=== PATIENT | female | born 1965 | race Caucasian/White ===

== ENCOUNTER 2023-09-04 06:29 | Day surgery (SDC) | payer BC, SELFPAY ==
[2023-08-29 09:42] LABS: Hematocrit 38.3 % (37.0-47.0); Hemoglobin 12.8 g/dL (12.0-16.0); Mean Corp Hgb Conc. 33.4 g/dL (33.0-37.0); Mean Corpuscular Hgb 30.6 pg (27.0-31.0); Mean Corpuscular Volume 91.6 fL (81.0-99.0); Platelet Count 328 10^3/uL (130-400); Red Blood Cell Count 4.18 10^6/uL (4.20-5.40); Red Cell Dist. Width 13.9 % (11.5-14.5); White Blood Cell Count 9.2 10^3/uL (4.8-10.8)
[2023-08-29 10:07] VITALS: BMI 23.3
[2023-08-29 10:28] LABS: Blood Urea Nitrogen 23 mg/dl (7-17); Calcium 9.9 mg/dl (8.4-10.2); Carbon Dioxide 27 mmol/L (22-30); Chloride 100 mmol/L (98-107); Estimated Creatinine Clearance 54 ml/min; Glucose 102 mg/dl (70-99); Potassium 5.4 mmol/L (3.5-5.1); Sodium 136 mmol/L (135-145); eGFR > 60.00
[2023-09-04] VITALS (11 sets, daily range): BP systolic 111–137; BP diastolic 69–85; BMI 23.3
--- NOTE | 2023-09-04 07:20 | HP.FOC2 ---
Focused History & Physical
Chief Complaint
HPI:
Chief Complaint: Bilateral inguinal hernias
HPI / Indication for Planned Procedure: Patient is a 58-year-old female known to myself secondary to a history of bilateral inguinal hernias. She had been following expectantly for the past few years, since 2019, but they have progressed a bit in
size with associated symptoms now prompting surgical correction. Right side more bothersome than left.
Relevant Past Medical History: Other (Chronic low back pain)
Relevant Social History: Negative
Relevant Family History: Negative
Relevant Past Surgical History: Positive for (Removal right/left breast cyst, extraction, bilateral breast implants, excision of basal cell carcinoma)
Review of Systems
Review of Pertinent Systems: All Systems Negative
Medication
See Medication form for detailed medications: Yes
Medication List (including Herbals & OTC):
Fish Oil 1,400 mg PO DAILY 08/29/23
Holy Basil 3 tab PO HS 08/29/23
Mushroom Powder 2 cap PO DAILY 08/29/23
[place] Extract 650 mg PO DAILY 08/29/23
garlic 200 mg tablet 600 mg PO DAILY 08/29/23
turmeric root extract 500 mg capsule 1,500 mg PO DAILY 08/29/23
Medications Reviewed: Yes
Allergies and Reactions
Patient has Allergies: Yes
Noted Allergies and Reactions:
Allergy/AdvReac Type Severity Reaction Status Date / Time
No Known Allergies Allergy Verified 08/29/23 10:07
Pertinent Physical Exam
All Other Systems: Negative
Head/Neck: Normal
Lungs: Normal
Heart: Normal
Abdomen: Other (Bilateral inguinal hernias reducible, right side larger than left)
Extremities: Normal
Neurological: Normal
Diagnosis / Assessment
Patient is a 58-year-old female presenting for scheduled operative correction symptomatic bilateral inguinal hernias
Plan / Procedure
Robotic assisted laparoscopic repair bilateral inguinal hernias with mesh
Anesthesia/Sedation to be done by Anesthesia Provider: Yes
[2023-09-04] MEDS: NORMOSOL-R 1000 IV (08:40)
[2023-09-04] MEDS: TYLENOL 1000 MG PO (08:51)
--- NOTE | 2023-09-04 09:00 | W.SUR.PREOP ---
Pre-Operative Surgical Note
-
I have examined this patient prior to the performance of the scheduled procedure.
The patient's condition is unchanged from the time of the current History and
Physical and the patient is able to undergo the scheduled procedure.
--- NOTE | 2023-09-04 11:29 | W.IMMPOSTOP ---
Addendum entered and electronically signed by Vince Tucker MD 09/04/23 11:39:
#[id number]
Original Note:
Surgical Immed Post Op Note
-
Primary Surgeon: Garrett
Assisting Surgeon: Simin LINARES
Pre-op Diagnosis: Bilateral inguinal hernias
Post-op Diagnosis: Bilateral inguinal hernia; indirect. Left femoral hernia as well
Procedure Performed: Robotic assisted laparoscopic repair bilateral inguinal's/left femoral hernias with mesh. 3D max large mid weight x 2
Anesthesia Type: GETA +0.25% Marcaine
Specimen / Cultures: None
Estimated Blood Loss: 8 mL
Complications: None immediate
Operative Findings: Bilateral indirect inguinal hernias with lipomas of the inguinal canal reduced and excised. Left femoral hernia with herniated preperitoneal fat. 3D max large mid weight mesh repair x 2.
[2023-09-04] MEDS: ROXICODONE 5 MG PO (13:56)
== END 2023-09-04 14:02 | disposition home or self-care (01) ==
LOC: SDS 06:29
PROVIDERS: ATTENDING PHYSICIAN Surgery; FAMILY PHYSICIAN Family Medicine
DX: K40.20 Bilateral inguinal hernia, without obstruction or gangrene, not specified as recurrent (principal); K41.90 Unilateral femoral hernia, without obstruction or gangrene, not specified as recurrent
CPT/HCPCS: 49650; 49550; 36415; 80048; 85027; 93005; C1781

== ENCOUNTER → 2023-11-16 10:29 | Outpatient (REF) | payer BC, SELFPAY | LOC: HWWDC 10:29 | PROVIDERS: ATTENDING PHYSICIAN Physician Assistant Medical | DX: Z12.31 Encounter for screening mammogram for malignant neoplasm of breast (principal) | CPT/HCPCS: 77063; 77067 ==

== ENCOUNTER → 2024-06-06 08:04 | Outpatient (REF) | payer BC, SELFPAY | LOC: HWRAD 08:04 | PROVIDERS: ATTENDING PHYSICIAN Obstetrics & Gynecology Gynecology; FAMILY PHYSICIAN Physician Assistant Medical | DX: N95.0 Postmenopausal bleeding (principal) | CPT/HCPCS: 76830; 76856 ==

== ENCOUNTER 2025-02-05 07:08 | Emergency (ER) | payer BC, SELFPAY ==
[2025-02-05 07:12] VITALS: BP 168/104
--- NOTE | 2025-02-05 07:32 | ED.GENMED ---
History of Present Illness
<Adiel Harrell PA-C - Last Filed: 02/05/25 10:59>
General
Chief Complaint: Chest Pain
Source: patient
Time Seen by Provider: 02/05/25 07:21
History of Present Illness
History of Present Illness:
59-year-old female with no significant past medical history presenting to the emergency department for evaluation after she has been experiencing waxing waning upper chest/back pain described to be sharp, nonradiating, mostly constant but with
worsening severity especially with deep inspiration, today worse at 4 AM which is what prompted her to come to the ER. Patient notes that she was on her way of car runner Monday which she notes is a relatively normal activity for her and notes
there was no specific injury while on the [employer] runner. Patient states she does not feel short of breath, denies any cough, hemoptysis, fevers or recent illnesses, lower extremity pain or edema, abdominal pain, nausea or vomiting. Patient did not
take anything for her symptoms prior to arrival. Patient states the only travel she has done recently is down to [place] where they have a second house and where they were riding the [employer] car runner the [facility]. Social history was otherwise
noncontributory. Family history was noted for mother having a stroke and father having cardiac arrhythmia.
Past History
<Adiel Harrell PA-C - Last Filed: 02/05/25 10:59>
Past History
ED Past Medical History: None
ED Past Surgical History: Other (Hernia repair)
Social History
Tobacco: Non-smoker
Alcohol: Occasional
Drug: None
Personal:
Living: with family
Review of Systems
<Adiel Harrell PA-C - Last Filed: 02/05/25 10:59>
Review of Systems
All Other Systems: ROS reviewed and negative except as documented in HPI and ROS
Phy Exam
<Adiel Harrell PA-C - Last Filed: 02/05/25 10:59>
Physical Exam
Physical Exam:
GENERAL: Alert , in no apparent distress
HEAD: Normocephalic atraumatic
EYE: conjunctiva clear
NECK: Supple
ENT: o/p clr, mmm.
CARDIAC: Tachycardic rate, normal rhythm, rate between 104 and 118 bpm
LUNGS: Clear breath sounds bilaterally, no acute respiratory distress, no wheezes/rales/rhonchi
NEUROLOGICAL: Alert and oriented
SKIN: Warm and dry, skin intact.
MUSCULOSKELETAL: well perfused. Orthopedic shoe on the left foot from what patient states is a Herring fracture
PSYCH: Normal and appropriate interaction.
Scores
<Adiel Harrell PA-C - Last Filed: 02/05/25 10:59>
Heart Failure Risk
Heart Failure Risk Score: Not Applicable
Heart Score for Chest Pain Patients
STEMI patient?: Not applicable
Withdrawal Assessment of Alcohol
Withdrawal Assessment Completed?: Not applicable
Course
<Adiel Harrell PA-C - Last Filed: 02/05/25 10:59>
Orders/Labs/Results
Orders:
Orders
02/05/25 07:10
Electrocardiogram (*1) Urgent
Reason for Study: Chest Pain
02/05/25 07:11
EKG- Treatment ONCE
02/05/25 07:30
CT Chest PE Study Urgent
Comment:
Reason For Exam: pleurisy, tachy, chest pain
02/05/25 07:50
Complete Blood Count/With Diff Urgent
Comprehensive Metabolic Panel Urgent
NT-proBNP Urgent
Troponin I Urgent
02/05/25 09:58
Ketorolac [Toradol] 30 mg IV NOW STA
Abnormal Lab Results
02/05/25
07:50
WBC 11.2 H 10^3/uL
(4.8-10.8)
RBC 4.18 L 10^6/uL
(4.20-5.40)
Absolute Neuts (auto) 7.8 H 10^3/uL
(1.4-6.5)
Absolute Monos (auto) 1.7 H 10^3/uL
(0.1-0.6)
Lymphocytes % 12.3 L %
(20.5-51.1)
Monocytes % 15.2 H %
(1.7-9.3)
BUN 22 H mg/dl
(7-17)
Glucose 112 H mg/dl
(70-99)
02/05/25 07:50
02/05/25 07:50
Vital Signs
Initial and Last Documented VS:
Initial Vital Signs
Temp Pulse Resp BP Pulse Ox
97.9 F 115 16 168/104 100
02/05/25 07:12 02/05/25 07:12 02/05/25 07:12 02/05/25 07:12 02/05/25 07:12
Last Documented Vital Signs
Temp Pulse Resp BP Pulse Ox
97.9 F 76 20 117/69 99
02/05/25 07:12 02/05/25 10:00 02/05/25 10:00 02/05/25 10:00 02/05/25 10:00
<Tanner Blue MD - Last Filed: 02/05/25 10:04>
Orders/Labs/Results
Orders:
Orders
02/05/25 07:10
Electrocardiogram (*1) Urgent
Reason for Study: Chest Pain
02/05/25 07:11
EKG- Treatment ONCE
02/05/25 07:30
CT Chest PE Study Urgent
Comment:
Reason For Exam: pleurisy, tachy, chest pain
02/05/25 07:50
Complete Blood Count/With Diff Urgent
Comprehensive Metabolic Panel Urgent
NT-proBNP Urgent
Troponin I Urgent
02/05/25 09:58
Ketorolac [Toradol] 30 mg IV NOW STA
Abnormal Lab Results
02/05/25
07:50
WBC 11.2 H 10^3/uL
(4.8-10.8)
RBC 4.18 L 10^6/uL
(4.20-5.40)
Absolute Neuts (auto) 7.8 H 10^3/uL
(1.4-6.5)
Absolute Monos (auto) 1.7 H 10^3/uL
(0.1-0.6)
Lymphocytes % 12.3 L %
(20.5-51.1)
Monocytes % 15.2 H %
(1.7-9.3)
BUN 22 H mg/dl
(7-17)
Glucose 112 H mg/dl
(70-99)
02/05/25 07:50
02/05/25 07:50
Vital Signs
Initial and Last Documented VS:
Initial Vital Signs
Temp Pulse Resp BP Pulse Ox
97.9 F 115 16 168/104 100
02/05/25 07:12 02/05/25 07:12 02/05/25 07:12 02/05/25 07:12 02/05/25 07:12
Last Documented Vital Signs
Temp Pulse Resp BP Pulse Ox
97.9 F 76 20 117/69 99
02/05/25 07:12 02/05/25 10:00 02/05/25 10:00 02/05/25 10:00 02/05/25 10:00
<Adiel Harrell PA-C - Last Filed: 02/05/25 10:59>
MDM/Problems Addressed
Differential Diagnosis Includes:
Pulmonary embolism
Aortic dissection
AAA
Pleurisy
Pneumonia
Viral syndrome
Pneumothorax
Pericarditis/myocarditis
Less concern for GI symptoms
MDM/Problems Addressed:
59-year-old female presenting to the ER for evaluation of upper chest/back pain since Monday. Notes she was riding a wave runner the same day but states that that is a pretty typical summer activity for her so I do not suspect a traumatic cause
for her pain. Given the pleuritic nature of her pain, tachycardia and lack of reproducibility will obtain a CTA of the chest to rule out PE. This should also evaluate the aorta to ensure no complications. Patient declining anything for pain.
Disposition pending.
<Adiel Harrell PA-C - Last Filed: 02/05/25 10:59>
*Radiology
Radiology exam reviewed: radiology read reviewed
*Pulse Oximetry
SaO2: 100
Oxygen Mode of Delivery: Room air
Patient hypoxic: no
*EKG
Heart Rate: 109
Rate: tachycardiac
Rhythm: sinus
Ischemia: T-wave inversion (V5 and V6)
*Hull Inspector Interpretation
Rate: tachycardiac
Heart Rate: 114
Rhythm: sinus
*Critical Care Note
Total Time (30-74mins, 75-104mins- exclusive of procedures): Not Applicable
<Adiel Harrell PA-C - Last Filed: 02/05/25 10:59>
Patient Management
Social determinants of health affecting care: Living situation and Strong social support
Escalation/DeEscalation of care consider admission/obs:
CT findings noted for no PE or aortic complications. There are small bilateral pleural effusions with possible atelectasis versus pneumonia and pericardial thickening. Question pneumonia versus pericarditis. Will cover with a course of
doxycycline as well as colchicine. Patient to follow-up with primary care provider. Aware of return precautions.
ED Attending Note
<Adiel Harrell PA-C - Last Filed: 02/05/25 10:59>
-
Portions of this chart may have been created with voice recognition software.� Occasional wrong word or��sound alike� substitutions may have occurred due to the inherent limitations of voice recognition software.
<Tanner Blue MD - Last Filed: 02/05/25 10:04>
ED Attending Note
Patient seen and examined by attending physician: Yes
I performed the substantive portion of visit, reviewed & personally made and approve the management plan that is documented in note by myself or GATO.: Yes
ED Attending Note:
59-year-old female presents with 4 days of chest pain upper back pain somewhat pleuritic in nature. Patient had no symptoms while doing the wave runner which she does frequently. Worse with lying down. No past medical history.
On exam patient is nontoxic in no distress. She is warm and dry. Perfusing well. Lungs are clear and equal. No severe splinting. Heart regular rate and rhythm no murmur. Abdomen is nontender. Extremities are unremarkable. No cords. No calf
swelling or tenderness. She does have a cast shoe on her left foot from 1/5 metatarsal fracture.
EKG... Sinus tachycardia. Some LVH changes. Troponin normal. CT angio shows some mild pericardial thickening and small pleural effusions. No PE no dissection. Mild leukocytosis.
This would be consistent with a pericarditis/pleuritis. Possibly infectious. Will start colchicine, doxycycline symptomatic treatment. Medically stable for discharge to follow-up. Do not feel repeat cardiac testing is needed or warranted. She
has had the symptoms for 4 days essentially continuously.
Discharge Plan
Departure
Patient Disposition: Home (Routine Discharge)
Date of Disposition: 02/05/25
Time of Disposition: 10:01
Patient with high blood pressure during this ER visit?: Yes
Discharge Problem:
Chest pain
Instructions: Chest Pain PCP Follow Up
Prescriptions:
New
doxycycline hyclate 100 mg tablet
100 mg PO BID 10 Days Qty: 20 0RF
colchicine 0.6 mg tablet
0.6 mg PO DAILY Qty: 11 0RF
Rx Instructions:
Take one tab PO BID on day 1, take one tab PO remaining days
No Action
turmeric root extract 500 mg Capsule
1,500 mg PO DAILY
garlic 200 mg Tablet
600 mg PO DAILY
Fish Oil
1,400 mg PO DAILY
Holy Basil
3 tab PO HS
Mushroom Powder
2 cap PO DAILY
Patient Comments:
1000 MG
[place] Extract 650 mg capsule
650 mg PO DAILY
Tylenol
1,000 mg PO Q6H PRN (Reason: pain)
tramadol 50 mg tablet
50 mg PO Q6HPRN PRN (Reason: severe pain/breakthrough pain) Qty: 7 0RF
ibuprofen 200 mg tablet
400 - 600 mg PO Q6HPRN PRN (Reason: moderate pain) Qty: 1 0RF
polyethylene glycol 3350 [Miralax] 17 gram/dose powder
4 g PO DAILY PRN (Reason: Constipation) Qty: 119 0RF
Rx Instructions:
start a laxative such as MIRALAX on day 2 after surgery if no bowel movement yet as long as no nausea/vomiting and passing gas
Referrals:
Diamante Yu MD [Family Provider, Gynecology]
Interventions
Interventions:
*Risk Screen - Suicide Last Done: 02/05/25 07:40
*General Assessment Last Done: 02/05/25 07:40
*Neglect/Abuse Screening Last Done: 02/05/25 07:40
*ED- Fall Risk Assessment Last Done: 02/05/25 07:40
*ED COVID-19 Vaccine History Last Done: 02/05/25 07:40
*Nursing Disposition Last Done: 02/05/25 10:33
ED- Cardiac Assessment Last Done: 02/05/25 07:43
Discharge Date and Time
Discharge Date/Time: 02/05/25 10:33
Print Language: BAHRAINI
[2025-02-05 07:34] VITALS: BP 139/84
[2025-02-05 07:35] VITALS: BMI 21.5
[2025-02-05 08:00] VITALS: BP 136/84
[2025-02-05 08:07] LABS: Hematocrit 38.5 % (37.0-47.0); Hemoglobin 12.9 g/dL (12.0-16.0); Mean Corp Hgb Conc. 33.5 g/dL (33.0-37.0); Mean Corpuscular Volume 92.1 fL (81.0-99.0); Nucleated Red Blood Cells % 0 %; Platelet Count 374 10^3/uL (130-400); Red Cell Dist. Width 13.0 % (11.5-14.5)
[2025-02-05 08:32] LABS: Troponin I < 0.012 ng/ml
[2025-02-05 08:39] LABS: ALT (SGPT) 19 U/L (0-35); AST (SGOT) 20 U/L (14-36); Albumin 4.5 g/dl (3.5-5.0); Alkaline Phosphatase 120 U/L (38-126); Blood Urea Nitrogen 22 mg/dl (7-17); Calcium 9.7 mg/dl (8.4-10.2); Carbon Dioxide 24 mmol/L (22-30); Chloride 105 mmol/L (98-107); Estimated Creatinine Clearance 68 ml/min; Glucose 112 mg/dl (70-99); Potassium 4.1 mmol/L (3.5-5.1); Sodium 140 mmol/L (135-145); Total Protein 7.8 g/dl (6.3-8.2); eGFR > 60.00
[2025-02-05 09:00] VITALS: BP 124/75
[2025-02-05 10:00] VITALS: BP 117/69
[2025-02-05] MEDS: TORADOL 30 MG IV (10:12)
== END 2025-02-05 10:33 | disposition home or self-care (01) ==
LOC: EMR 07:08
PROVIDERS: Physician Assistant Medical; EMERGENCY PHYSICIAN Emergency Medicine; FAMILY PHYSICIAN Physician Assistant Medical
DX: R07.9 Chest pain, unspecified (principal); R00.0 Tachycardia, unspecified; R03.0 Elevated blood-pressure reading, without diagnosis of hypertension; J90 Pleural effusion, not elsewhere classified; D72.829 Elevated white blood cell count, unspecified
CPT/HCPCS: 99284; 96374; 71275; 80053; 83880; 84484; 85025; 93005; Q9967

== ENCOUNTER 2025-02-06 13:48 | Emergency (ER) | payer BC, SELFPAY ==
[2025-02-06] VITALS (8 sets, daily range): BP systolic 139–155; BP diastolic 90–101; BMI 21.3
--- NOTE | 2025-02-06 14:30 | ED.GENMED ---
History of Present Illness
<Adiel Harrell PA-C - Last Filed: 02/07/25 15:47>
General
Chief Complaint: Chest Pain
Source: patient and records
Time Seen by Provider: 02/06/25 13:49
History of Present Illness
History of Present Illness:
59-year-old female presenting back to the emergency department for reevaluation of her continued chest discomfort which started a few days ago after she had been jet skiing on a sprague, describing the pain to be across her chest and into her back,
worse with deep inspiration. Patient was contacted back by our emergency team noting the continued symptoms and was recommended she come back for further evaluation. Today patient denies any new symptoms. She did initiate the colchicine and
antibiotics last night but states this did not give her any relief. Denies any fevers, rigors, cough or any other current symptoms.
Past History
<Adiel Harrell PA-C - Last Filed: 02/07/25 15:47>
Past History
ED Past Medical History: None
ED Past Surgical History: Other (Hernia repair)
Social History
Tobacco: Non-smoker
Alcohol: Occasional
Drug: None
Personal:
Living: with family
Review of Systems
<Adiel Harrell PA-C - Last Filed: 02/07/25 15:47>
Review of Systems
All Other Systems: ROS reviewed and negative except as documented in HPI and ROS
Phy Exam
<Adiel Harrell PA-C - Last Filed: 02/07/25 15:47>
Physical Exam
Physical Exam:
GENERAL: Alert , in no apparent distress
HEAD: Normocephalic atraumatic
EYE: conjunctiva clear
NECK: Supple
ENT: o/p clr, mmm.
CARDIAC: Regular rate and rhythm
LUNGS: Clear breath sounds bilaterally, no acute respiratory distress, no wheezes/rales/rhonchi
NEUROLOGICAL: Alert and oriented
SKIN: Warm and dry, skin intact.
MUSCULOSKELETAL: well perfused.
PSYCH: Normal and appropriate interaction.
Scores
<Adiel Harrell PA-C - Last Filed: 02/07/25 15:47>
Heart Failure Risk
Heart Failure Risk Score: Not Applicable
Heart Score for Chest Pain Patients
STEMI patient?: No
History: Slightly or Non-Suspicious
ECG: Normal
Age: >45 - <65 years
Risk Factors: 1 or 2 Risk Factors
Troponin: </= Normal Limit
Heart Score for Chest Pain Patients: 2
Heart Score Risk: 2.5% MACE over next 6 weeks
Withdrawal Assessment of Alcohol
Withdrawal Assessment Completed?: Not applicable
<Helen Partida MD - Last Filed: 02/06/25 19:51>
Heart Score for Chest Pain Patients
Heart Score for Chest Pain Patients: 2
Heart Score Risk: 2.5% MACE over next 6 weeks
Course
<Adiel Harrell PA-C - Last Filed: 02/07/25 15:47>
Orders/Labs/Results
Orders:
Orders
02/06/25 13:49
Electrocardiogram (*1) Urgent
Reason for Study: Chest Pain
EKG- Treatment ONCE
02/06/25 14:12
Echo 2D MMode Color/Doppler Urgent
Reason for Study: chest pain, effusions
02/06/25 14:35
Complete Blood Count/With Diff Urgent
Comprehensive Metabolic Panel Urgent
D-Dimer Urgent
Troponin I Urgent
02/06/25 15:54
Ketorolac [Toradol] 15 mg .ROUTE .STK-MED ONE
02/06/25 15:58
Ketorolac [Toradol] 15 mg IV NOW STA
02/06/25 16:15
US Periph Venous LOWER Ext Ran Urgent
Comment:
Reason For Exam: SWELLING
Abnormal Lab Results
02/06/25
14:35
WBC 11.0 H 10^3/uL
(4.8-10.8)
RBC 3.92 L 10^6/uL
(4.20-5.40)
Hct 35.7 L %
(37.0-47.0)
Absolute Neuts (auto) 7.7 H 10^3/uL
(1.4-6.5)
Absolute Monos (auto) 1.7 H 10^3/uL
(0.1-0.6)
Lymphocytes % 12.9 L %
(20.5-51.1)
Monocytes % 15.8 H %
(1.7-9.3)
D-Dimer 3.54 H ug/mlFEU
(0.00-0.50)
Glucose 125 H mg/dl
(70-99)
02/06/25 14:35
02/06/25 14:35
Vital Signs
Initial and Last Documented VS:
Initial Vital Signs
Temp Pulse Resp BP Pulse Ox
98.0 F 97 16 155/100 98
02/06/25 13:49 02/06/25 13:49 02/06/25 13:49 02/06/25 13:49 02/06/25 13:49
Last Documented Vital Signs
Temp Pulse Resp BP Pulse Ox
97.6 F 98 21 142/97 96
02/06/25 14:38 02/06/25 18:00 02/06/25 18:00 02/06/25 18:00 02/06/25 18:00
<Helen Partida MD - Last Filed: 02/06/25 19:51>
Orders/Labs/Results
Orders:
Orders
02/06/25 13:49
Electrocardiogram (*1) Urgent
Reason for Study: Chest Pain
EKG- Treatment ONCE
02/06/25 14:12
Echo 2D MMode Color/Doppler Urgent
Reason for Study: chest pain, effusions
02/06/25 14:35
Complete Blood Count/With Diff Urgent
Comprehensive Metabolic Panel Urgent
D-Dimer Urgent
Troponin I Urgent
02/06/25 15:54
Ketorolac [Toradol] 15 mg .ROUTE .STK-MED ONE
02/06/25 15:58
Ketorolac [Toradol] 15 mg IV NOW STA
02/06/25 16:15
US Periph Venous LOWER Ext Ran Urgent
Comment:
Reason For Exam: SWELLING
Abnormal Lab Results
02/06/25
14:35
WBC 11.0 H 10^3/uL
(4.8-10.8)
RBC 3.92 L 10^6/uL
(4.20-5.40)
Hct 35.7 L %
(37.0-47.0)
Absolute Neuts (auto) 7.7 H 10^3/uL
(1.4-6.5)
Absolute Monos (auto) 1.7 H 10^3/uL
(0.1-0.6)
Lymphocytes % 12.9 L %
(20.5-51.1)
Monocytes % 15.8 H %
(1.7-9.3)
D-Dimer 3.54 H ug/mlFEU
(0.00-0.50)
Glucose 125 H mg/dl
(70-99)
02/06/25 14:35
02/06/25 14:35
Vital Signs
Initial and Last Documented VS:
Initial Vital Signs
Temp Pulse Resp BP Pulse Ox
98.0 F 97 16 155/100 98
02/06/25 13:49 02/06/25 13:49 02/06/25 13:49 02/06/25 13:49 02/06/25 13:49
Last Documented Vital Signs
Temp Pulse Resp BP Pulse Ox
97.6 F 98 21 142/97 96
02/06/25 14:38 02/06/25 18:00 02/06/25 18:00 02/06/25 18:00 02/06/25 18:00
<Adiel Harrell PA-C - Last Filed: 02/07/25 15:47>
MDM/Problems Addressed
Differential Diagnosis Includes:
Pericarditis
Myocarditis
Pulmonary embolism
Pleurisy
Pneumonia
Viral syndrome
Malignancy
MDM/Problems Addressed:
59-year-old female presenting back to the ER for reevaluation of continued chest discomfort/upper back discomfort. Yesterday she had workup done which showed small bilateral pleural effusions and pericardial wall thickening on CT of her chest.
Will request echocardiogram by cardiology, repeat labs including D-dimer ordered. Disposition pending. Patient is otherwise hemodynamically
<Adiel Harrell PA-C - Last Filed: 02/07/25 15:47>
*Radiology
Radiology exam reviewed: radiology read reviewed
*Pulse Oximetry
SaO2: 100
Oxygen Mode of Delivery: Room air
Patient hypoxic: no
*EKG
Heart Rate: 98
Rate: normal
Rhythm: sinus and PAC's
Ischemia: no ischemia
*Radiagraph Operator Interpretation
Rate: normal
Heart Rate: 96
Rhythm: sinus
*Critical Care Note
Total Time (30-74mins, 75-104mins- exclusive of procedures): Not Applicable
Data Reviewed
Review of Other/Old Records Reveals: Records and Radiology Studies
<Helen Partida MD - Last Filed: 02/06/25 19:51>
Update Note
Update Note:
ECHO:; 1. Normal left ventricular size, wall thickness and systolic function. No regional wall motion abnormalities are seen.
2. Right ventricular size and systolic function are within normal limits.
3. Mild to moderate mitral regurgitation.
4. Compared to a prior transthoracic echocardiogram study from 05/25/2023 no significant changes are seen.
ED Attending Note
<Adiel Harrell PA-C - Last Filed: 02/07/25 15:47>
-
Portions of this chart may have been created with voice recognition software.� Occasional wrong word or��sound alike� substitutions may have occurred due to the inherent limitations of voice recognition software.
<Helen Partida MD - Last Filed: 02/06/25 19:51>
ED Attending Note
Patient seen and examined by attending physician: Yes
I performed the substantive portion of visit, reviewed & personally made and approve the management plan that is documented in note by myself or GATO.: Yes
ED Attending Note:
59-year-old female who states that Monday she all day she felt perfectly well, was active, on a wave runner's which she describes as bouncy and choppy although she did not fall off some. She had dinner with her and again was perfectly
well. Then, she went to bed on a cabin in her boat which was a confined space that she needed to lay mostly completely on her back. That is when she note discomfort, not sudden onset, across the mid back and feeling like her 'ribs hurt'. When she
would turn on her side in this confined space she would get shooting discomfort in the shoulder, and therefore she continued to lay on her back. The symptoms of mid back pain have continued, as well as rib pain. She then noted discomfort across
the front of her chest and no longer in her ribs. She states that she cannot take a deep breath and she feels like she got 'punched when she tries to do so'. She came to the emergency department yesterday and had extensive workup, CT showed
nondiagnostic findings of the pericardium and pleural area bilaterally, with consideration for possibility of pneumonia and/or pericarditis she was started on colchicine and doxycycline. Patient was called back to the emergency department today
recommending an echocardiogram for further workup. Patient states that she feels better compared to yesterday. She no longer has back pain. She does have discomfort in her chest that is pleuritic, but not debilitating. She feels better with
Motrin. She denies leg swelling, recent immobilization, fever, chills, diaphoresis, dyspnea, abdominal pain. She does not feel that the pain is ripping or tearing in quality nor does it radiate through to her back. She denies recent illness or
URI. On exam, patient extremely well-appearing, heart regular rate and rhythm, no murmurs or rubs noted, lungs CTA, no leg swelling. Heart rate in the high 90s here, not dyspneic on exam. Echocardiogram and labs pending. ECG unremarkable.
D Dimerelevation likey relatedto inflammatin/possible pericarditis. Pt remains stable here.W/u unremkarable otherwise, do not clinically suspect PE, dissection etc. D/w pt import off/u andreasons to rted.
Discharge Plan
Departure
Patient Disposition: Home (Routine Discharge)
Date of Disposition: 02/06/25
Time of Disposition: 17:38
Patient with high blood pressure during this ER visit?: Yes
Condition: Good
Discharge Problem:
Chest pain
Instructions: Chest Pain DCA Follow Up, BLOOD PRESSURE
Prescriptions:
New
oxycodone-acetaminophen [Percocet] 5-325 mg tablet
1 tab PO Q6HPRN PRN (Reason: pain) Qty: 5 0RF
oxycodone-acetaminophen [Percocet] 5-325 mg tablet
1 tab PO Q4HPRN PRN (Reason: pain) Qty: 5 0RF
Referrals:
Akanksha Hill MD [Active, Cardiology] - Tomorrow
UNKNOWN - PT DOES,NOT KNOW [Unknown Provider]
Activity Restrictions/Additional Instructions:
PLEASE CONTINUE MEDICATIONS PRESCRIBED. IF YOU DEVELOP INCREASING OR NEW PAIN, TROUBLE BREATHING, DIZZINESS, FEVER, OR OTHER WORRISOME SIGNS, PLEASE RETURN TO THE ER IMMEDIATELY EXCLAMATION
Interventions
Interventions:
*Risk Screen - Suicide Last Done: 02/06/25 13:49
*General Assessment Last Done: 02/06/25 14:38
*Neglect/Abuse Screening Last Done: 02/06/25 13:49
*ED- Fall Risk Assessment Last Done: 02/06/25 14:38
*ED COVID-19 Vaccine History Last Done: 02/06/25 14:38
*Nursing Disposition Last Done: 02/06/25 18:36
ED- Cardiac Assessment Last Done: 02/06/25 14:38
Discharge Date and Time
Discharge Date/Time: 02/06/25 18:37
Print Language: OCCITAN
[2025-02-06 14:43] LABS: Hematocrit 35.7 % (37.0-47.0); Hemoglobin 12.0 g/dL (12.0-16.0); Mean Corp Hgb Conc. 33.6 g/dL (33.0-37.0); Mean Corpuscular Volume 91.1 fL (81.0-99.0); Nucleated Red Blood Cells % 0 %; Platelet Count 379 10^3/uL (130-400); Red Cell Dist. Width 12.8 % (11.5-14.5)
[2025-02-06 15:08] LABS: ALT (SGPT) 16 U/L (0-35); AST (SGOT) 18 U/L (14-36); Albumin 4.0 g/dl (3.5-5.0); Alkaline Phosphatase 117 U/L (38-126); Blood Urea Nitrogen 16 mg/dl (7-17); Calcium 9.5 mg/dl (8.4-10.2); Carbon Dioxide 28 mmol/L (22-30); Chloride 104 mmol/L (98-107); Estimated Creatinine Clearance 78 ml/min; Glucose 125 mg/dl (70-99); Potassium 4.0 mmol/L (3.5-5.1); Sodium 139 mmol/L (135-145); Total Protein 7.0 g/dl (6.3-8.2); eGFR > 60.00
[2025-02-06 15:18] LABS: D-Dimer 3.54 ug/mlFEU (0.00-0.50)
[2025-02-06 15:19] LABS: Troponin I < 0.012 ng/ml
[2025-02-06] MEDS: TORADOL 15 MG IV (15:59)
== END 2025-02-06 18:37 | disposition home or self-care (01) ==
LOC: EMR 13:48
PROVIDERS: Physician Assistant Medical; EMERGENCY PHYSICIAN Emergency Medicine; FAMILY PHYSICIAN Physician Assistant Medical
DX: R07.9 Chest pain, unspecified (principal); I34.0 Nonrheumatic mitral (valve) insufficiency; J90 Pleural effusion, not elsewhere classified
CPT/HCPCS: 99284; 96374; 80053; 84484; 85025; 85379; 93005; 93306; 93970

== ENCOUNTER → 2025-03-07 11:21 | Outpatient (REF) | payer BC, SELFPAY | LOC: WDC 11:21 | PROVIDERS: ATTENDING PHYSICIAN Obstetrics & Gynecology Gynecology; FAMILY PHYSICIAN Physician Assistant Medical | DX: Z12.31 Encounter for screening mammogram for malignant neoplasm of breast (principal) | CPT/HCPCS: 77063; 77067 ==

== ENCOUNTER → 2025-05-15 10:32 | Outpatient (REF) | payer BC, SELFPAY | LOC: HWRAD 10:32 | PROVIDERS: ATTENDING PHYSICIAN Physician Assistant Medical | DX: M85.80 Other specified disorders of bone density and structure, unspecified site (principal) | CPT/HCPCS: 77080 ==